=== PATIENT | female | born 1990 | race Caucasian/White ===

== ENCOUNTER 2017-03-21 21:48 | Emergency (ER) | payer OTHER ==
--- NOTE | 2017-03-21 22:25 | RAD ---
THREE VIEWS OF THE RIGHT ANKLE 03/21/17 INDICATION: Right ankle pain after tripping. COMPARISON: Prior exam dated 06/26/12. IMPRESSION: No acute fracture or subluxation is evident. Mild enthesopathic change off the calcaneus. COMMENTS: Ankle mortis and talar dome preserved. The visualized aspects of the hindfoot reveal no definite acut e abnormality. POS: [facility]
== END 2017-03-21 22:15 | disposition home or self-care (01) ==
LOC: BURERS 21:48
DX: S93.401A Sprain of unspecified ligament of right ankle, initial encounter (principal); J45.909 Unspecified asthma, uncomplicated; X50.9XXA Other and unspecified overexertion or strenuous movements or postures, initial encounter

== ENCOUNTER 2019-10-03 09:16 | Outpatient (CLI) | payer OTHER ==
--- NOTE | 2019-10-04 10:15 | CT ---
CT OF THE LEFT LEG: Date: 10/03/[address] of the left leg was performed for evaluation of a palpable abnormality in the mid leg regio n anterolaterally. Reportedly it has been present for many years, but may be more prominent in size n ow. Axial slices were acquired and a lead marker was placed at the site of interest. Coronal and sagi ttal reconstructions were also done. Both the tibia and fibula appear intact with no sign of bony mass. I do not see any well-defined soft tissue mass at the area of interest either. The marker is placed near a cleft between the tibialis a nterior and extensor digitorum longus muscles anterolaterally in the anterior compartment. No abnorma lity of the muscles themselves is noted. At most, there might be a tiny subcentimeter lipoma in the s uperficial soft tissues at this point, but the finding is not at all impressive. There are no soft ti ssue calcifications or periosteal issues related to bone. IMPRESSION: No significant mass seen. See description above. POS: HOME
== END 2019-10-03 09:17 | disposition home or self-care (01) ==
LOC: BURCT 09:16
PROVIDERS: ATTEND Nurse Practitioner Family
DX: D49.89 Neoplasm of unspecified behavior of other specified sites (principal)

== ENCOUNTER 2019-10-03 09:50 | Emergency (ER) | payer OTHER ==
--- NOTE | 2019-10-03 14:35 | RAD ---
RIGHT FOOT 3 VIEWS: Date: 10/03/2019 Three views are provided, though a true lateral view was not obtained. No fracture was seen. All I se e of the calcaneus appears intact. No periosteal reaction was present. IMPRESSION: No acute findings. POS: HOME
== END 2019-10-03 11:42 | disposition home or self-care (01) ==
LOC: BURERS 09:50
DX: S92.211A Displaced fracture of cuboid bone of right foot, initial encounter for closed fracture (principal); F41.9 Anxiety disorder, unspecified; F32.9 Major depressive disorder, single episode, unspecified; W22.8XXA Striking against or struck by other objects, initial encounter

== ENCOUNTER 2019-10-19 17:54 | Emergency (ER) | payer OTHER ==
[2019-10-19] MEDS ORDERED: Ibuprofen 800 MG TAB ONE (18:15)
--- NOTE | 2019-10-19 20:53 | RAD ---
LEFT WRIST THREE VIEWS: 10/19/19 No fracture was seen. The carpal relationships seem normal. The metacarpals appear intact as do the d istal radius and ulna. IMPRESSION: No acute findings. POS: HOME
== END 2019-10-19 18:41 | disposition home or self-care (01) ==
LOC: BURERS 17:54
DX: S63.501A Unspecified sprain of right wrist, initial encounter (principal); J45.909 Unspecified asthma, uncomplicated; F41.9 Anxiety disorder, unspecified; F32.9 Major depressive disorder, single episode, unspecified; X50.1XXA Overexertion from prolonged static or awkward postures, initial encounter

== ENCOUNTER 2020-01-10 09:44 | Outpatient (CLI) | payer OTHER ==
--- NOTE | 2020-01-10 16:58 | RAD ---
LUMBAR SPINE THREE VIEWS: 01/10/20 No fracture, disc space narrowing, or significant arthritic change was seen. The SI joints are not se en completely but seem reasonably symmetrical. There were no findings to explain back pain. IMPRESSION: No significant findings. POS: HOME
== END 2020-01-10 09:45 | disposition home or self-care (01) ==
LOC: BURRAD 09:44
PROVIDERS: ATTEND Nurse Practitioner Family
DX: M54.5 Low back pain (principal)
CPT/HCPCS: 72100